=== PATIENT | female | born 2000 | race African-American/Black ===

== ENCOUNTER 2020-06-18 17:22 | Emergency (ER) | payer OTHER ==
--- NOTE | 2020-06-18 17:41 | PDOC ---
History of Present Illness - General Stated Complaint: DIZZINESS Time Seen by Provider: 06/18/20 17:39 - History of Present Illness Initial Comments: HPI Pt is a 19yo F with PMH anemia, asthma who presents with weakness and dizziness x4 days. Reports episode of vertiginous symptoms on Wednesday, associated with diffuse headache that self-resolved and nausea with 1 episode of emesis. Reports episode of dizziness on Wednesday, which improved with rest. Reports episode today, a/w weakness. Pt was scanning items at register when she felt vertiginous sxs, went to sit down, without resolution of symptoms. Denies any notable triggers, denies aggravating/relieving factors. Reports normal PO intake. Reports lightheadedness with change in position from sitting to standing. Denies f/c, chest pain, SOB, abdominal pain. LMP: 06/13/20 PCP: has not seen one here (moved from [place] last july) PMH: see above PSH: L ear nodule removal Meds: denies Allergies: NKDA Social: denies tobacco, social etoh, denies illicit drug use Review of Systems CONSTITUTIONAL: reports generalized weakness;denies fever, chills,malaise, loss of appetite HEENT:denies rhinorrhea, nasal congestion, sore throat, visual changes CARDIOVASCULAR:reports lightheadedness; denies chest pain, syncope, palpitations, irregular heart rate, peripheral edema RESPIRATORY:denies cough, shortness of breath, wheezing, hemoptysis GASTROINTESTINAL: reports n/v; denies abdominal pain, diarrhea, constipation, melena, hematochezia GENITOURINARY:denies dysuria, frequency, urgency, hematuria, flank pain MUSCULOSKELETAL:denies myalgia, arthralgia, neck pain, back pain HEMATOLOGIC/IMMUNOLOGIC:denies easy bleeding, easy bruising ENDOCRINE: denies unexplained weight gain, unexplained weight loss NEUROLOGIC:reports dizziness, headache; denies loss of consciousness, focal weakness or paresthesias, unsteady gait, mental status changes, bladder or bowel incontinence SKIN:denies rash, itching, pallor Physical Exam General: awake, alert, fully oriented, in no acute distress, well developed, well nourished Head: normocephalic, atraumatic Eyes: PERRL, EOMI, anicteric sclera, conjunctiva clear ENT: Auricles normal inspection, healed scar under L ear, hearing grossly normal, oropharynx clear without exudates, moist mucous membranes Neck: supple, normal ROM Lung: equal breath sounds b/l, CTA b/l, no crackles, wheezes; no distress, speaks full sentences Heart: RRR, normal S1, S2, no murmurs appreciated Abdomen: soft, non tender, normoactive bowel sounds, no guarding, rebound, masses Extremities: normal ROM, no edema, no erythema or tenderness, DP/PT pulses 2+ and symmetric Neuro: Cranial nerves: Cranial nerves II through XII are intact Motor: The upper extremities are 5/5 in all muscle groups. The lower extremities are 5/5 in all muscle groups. No pronator drift. Sensation: Sensation is intact to light touch throughout. Cerebellar: -dysmetria, -dysdiadochokinesia, [id number] is normal in both lower extremities. Gait: Normal Skin: warm, dry MDM Pt is a 19yo F with PMH anemia, asthma who presents with weakness and dizziness x4 days. VS significant for tachycardia DDx including but not limited to: hyperglycemia, vertigo, Workup: labs, ekg TX: IV fluids FSG 217 EKG: normal sinus rhythm, HR 85bpm, CO 132ms, QRS 66ms, QTc 409ms, TWI in AVR, V1 Pending labs Pt signed out to night team Past History - Medical History Allergies/Adverse Reactions: Allergies Allergy/AdvReac Type Severity Reaction Status Date / Time No Known Allergies Allergy Verified 06/18/20 17:43 Home Medications: Ambulatory Orders Meclizine HCl 25 mg PO BID PRN #10 tab.chew 06/18/20 ED Treatment Course - LABORATORY CBC & Chemistry Diagram: 06/18/20 18:47 06/18/20 18:47 Discharge - Discharge Information Problems reviewed: Yes Clinical Impression/Diagnosis: Vertigo, Hyperglycemia Condition: Stable Disposition: HOME - Additional Discharge Information Prescriptions: Meclizine HCl 25 mg PO BID PRN #10 tab.chew PRN Reason: Vertigo - Follow up/Referral Referrals: [facility] [place] Internal Med at [place] [Provider Group] - Patient Discharge Instructions Patient Printed Discharge Instructions: Complications of Type 2 Diabetes Additional Instructions: Today you were evaluated for dizziness. Your labs do not show any serious disease that needs immediate treatment. We have given you IV fluids and a medication called meclizine and you felt better. At home, you need to see your primary care doctor for further treatment and evaluation. Be mindful that your blood sugar is very high, consistent with Type 2 diabetes, which can lead to serious problems such as vision loss, wounds in your feet, or kidney failure. You should avoid eating any foods high in carbohydrates or sugar, such as juices, sodas, or anything that has a lot of rice or bread. If you experience any worsening dizziness, have uncontrollable nausea and vomiting, chest pain, difficulty breathing, or any other new or concerning symptoms, please return to the emergency room. - Post Discharge Activity
[2020-06-18 17:46] VITALS: TEMP 98.6; BMI 32.3
[2020-06-18] MEDS ORDERED: LACTATED RINGERS SOLUTION 1000 ML INFUS.BAG IV ONE (18:19)
[2020-06-18] MEDS ORDERED: MECLIZINE HCL 25 MG TABLET (FP) PO ONE (18:20)
--- NOTE | 2020-06-18 18:29 | PDOC ---
Documentation entered by Rosie Freeman SCRIBE, acting as scribe for Meg Lovett MD. Meg Lovett MD: This documentation has been prepared by the Radha martin Sydney, SCRIBE, under my direction and personally reviewed by me in its entirety. I confirm that the documentation accurately reflects all work, treatment, procedures, and medical decision making performed by me. Attending Attestation - Resident Resident Name: Erin Andino - ED Attending Attestation I have performed the following: I have examined & evaluated the patient, The case was reviewed & discussed with the resident, I agree w/resident's findings & plan, Exceptions are as noted - HPI HPI: 06/18/20 18:18 Patient is a 19 year old female with a significant past medical history of anemia (non-medicated), asthma, chronic headaches who presents to the ED with four days of intermittent dizziness and general weakness. As per patient, her symptoms began on Wednesday with an associated 6/10 headache which has since resolved. On Wednesday, she endorses room spinning with her episode of dizziness. 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 She notes associated nausea and one episode of NBNB vomiting today. Denies fever, chills, shortness of breath, chest pain, diarrhea, or urinary changes. Denies any triggers to her symptoms. Allergies: NKDA - Physicial Exam PE: 06/18/20 18:25 Well-nourished well-developed 19-year-old female presents with complaint of intermittent vertigo Head normocephalic atraumatic Eyes extraocular muscles intact, pupils equal reactive to light accommodation Neck supple, no bruits Lungs clear to auscultation CVS regular rate and rhythm S1-S2 Abdomen protuberant but nontender Extremities no pitting edema Skin warm and dry Neuro alert and oriented x3, ambulatory - Medical Decision Making 06/18/20 18:27 Patient history she works at [employer], no children,she moved up from [place] last July Social history: tobacco use ekg is nsr @ 85 bpm,normal QTc 06/18/20 18:31 [id number] and there s concern for diabetes. Her mother is diabetic 06/18/20 20:06 pt is ambulating with ease,alert and she had no gross focal neuro deficits 06/18/20 20:07 cbc is unremarkable chemistries wnl with exception [id number] Discharge - Discharge Information Problems reviewed: Yes Clinical Impression/Diagnosis: Vertigo, Hyperglycemia - Additional Discharge Information Prescriptions: Meclizine HCl 25 mg PO BID PRN #10 tab.chew PRN Reason: Vertigo - Follow up/Referral Referrals: [facility] [place] Internal Med at [place] [Provider Group] - Patient Discharge Instructions Patient Printed Discharge Instructions: Complications of Type 2 Diabetes Additional Instructions: Today you were evaluated for dizziness. Your labs do not show any serious disease that needs immediate treatment. We have given you IV fluids and a medication called meclizine and you felt better. At home, you need to see your primary care doctor for further treatment and evaluation. Be mindful that your blood sugar is very high, consistent with Type 2 diabetes, which can lead to serious problems such as vision loss, wounds in your feet, or kidney failure. You should avoid eating any foods high in carbohydrates or sugar, such as juices, sodas, or anything that has a lot of rice or bread. If you experience any worsening dizziness, have uncontrollable nausea and vomiting, chest pain, difficulty breathing, or any other new or concerning symptoms, please return to the emergency room. - Post Discharge Activity
[2020-06-18] MEDS ORDERED: SODIUM CHLORIDE 0.9% 500 ML INFUS.BAG IV ONE (19:03)
[2020-06-18] MEDS ORDERED: MECLIZINE HCL 25 MG TABLET (FP) ONE (19:03)
[2020-06-18 19:17] LABS: BASO % 0.7 % (0-2.0); EOS % 0.5 % (0-4.5); HEMATOCRIT 38.2 % (32.4-45.2); HEMOGLOBIN 11.9 GM/dL (10.7-15.3); MCH 23.6 pg (25.7-33.7); MCHC 31.3 g/dl (32.0-36.0); MEAN CELL VOLUME 75.3 fl (80-96); MONO % 4.9 % (3.8-10.2); NEUT % 73.9 % (42.8-82.8); PLATELET COUNT 330 K/MM3 (134-434); RBC 5.07 M/mm3 (3.60-5.2); RDW 17.2 % (11.6-15.6); WHITE BLOOD COUNT 6.7 K/mm3 (4.0-10.0)
[2020-06-18 19:19] LABS: URINE APPEARANCE CLOUDY; URINE BILIRUBIN NEGATIVE (NEGATIVE); URINE COLOR YELLOW; URINE GLUCOSE (UA) 3+ (NEGATIVE); URINE KETONE NEGATIVE (NEGATIVE); URINE LEUK ESTERASE NEGATIVE (NEGATIVE); URINE NITRITE NEGATIVE (NEGATIVE); URINE PROTEIN NEGATIVE (NEGATIVE); URINE UROBILINOGEN 0.2 mg/dL (0.2-1.0)
--- NOTE | 2020-06-18 19:20 | PDOC ---
*Physical Exam - Vital Signs Last Vital Signs Temp Pulse Resp BP Pulse Ox 98.6 F 103 H 18 136/76 100 06/18/20 17:43 06/18/20 17:43 06/18/20 17:43 06/18/20 17:43 06/18/20 17:43 ED Treatment Course - LABORATORY CBC & Chemistry Diagram: 06/18/20 18:47 06/18/20 18:47 - ADDITIONAL ORDERS Additional order review: Laboratory Results 06/18/20 17:46 POC Glucometer 217 06/18/20 17:46 POC Glucometer 217 - Medications Given in the ED: ED Medications Discontinued Medications Generic Name Dose Route Start Last Admin Trade Name Freq PRN Reason Stop Dose Admin Meclizine HCl 25 mg 06/18/20 18:20 06/18/20 19:12 Antivert - PO 06/18/20 18:21 25 mg ONCE ONE Administration Sodium Chloride 1,000 ml 06/18/20 19:03 06/18/20 19:12 Normal Saline - IV 06/18/20 19:04 1,000 ml ONCE ONE Administration Medical Decision Making - Medical Decision Making 06/18/20 19:12 Signed out to me by Dr. Erin Andino. 19F with reported PMH anemia, here for episodes of dizziness. Worse than normal today, mild MELGAR. Denies any other systemic symptoms. A bit tachycardic, possibly nervous, no respiratory sx or chest pain. Giving IVF and meclizine. Observed ambulating in the ED in NAD. Pending labs. If improved, can be discharged home with PMD f/u and education about obesity and diabetes. 06/18/20 19:26 Labs notable for: - Hgb 11.9, on the lower side but WNL - UA 3+ glucose, no infectious markers - UPREG negative - glucose 229 - Na 135, WNL, receiving 1L NS ECG NSR with HR 85, QTc 409, no MARIELY/D or TWI. 06/18/20 21:55 Patient feeling better after IVF. Sending home with meclizine and will follow-up with PMD. Discharge - Discharge Information Problems reviewed: Yes Clinical Impression/Diagnosis: Vertigo - Additional Discharge Information Prescriptions: Meclizine HCl 25 mg PO BID PRN #10 tab.chew PRN Reason: Vertigo - Follow up/Referral Referrals: [facility] [place] Internal Med at [place] [Provider Group] - Patient Discharge Instructions Patient Printed Discharge Instructions: Complications of Type 2 Diabetes Additional Instructions: Today you were evaluated for dizziness. Your labs do not show any serious disease that needs immediate treatment. We have given you IV fluids and a medication called meclizine and you felt better. At home, you need to see your primary care doctor for further treatment and evaluation. Be mindful that your blood sugar is very high, consistent with Type 2 diabetes, which can lead to serious problems such as vision loss, wounds in your feet, or kidney failure. You should avoid eating any foods high in carbohydrates or sugar, such as juices, sodas, or anything that has a lot of rice or bread. If you experience any worsening dizziness, have uncontrollable nausea and vomiting, chest pain, difficulty breathing, or any other new or concerning symptoms, please return to the emergency room. - Post Discharge Activity
[2020-06-18 19:22] LABS: HCG,QUALITATIVE URINE Negative
[2020-06-18 19:30] LABS: ALBUMIN 4.1 g/dl (3.4-5.0); BILIRUBIN,TOTAL 0.2 mg/dL (0.2-1); BLOOD UREA NITROGEN 12.4 mg/dL (7-18); CALCIUM 9.2 mg/dL (8.5-10.1); CREATININE 0.7 mg/dL (0.55-1.3); MAGNESIUM 1.8 mg/dL (1.8-2.4); POTASSIUM 4.1 mmol/L (3.5-5.1); TOT PROT 7.9 g/dl (6.4-8.2)
[2020-06-18 20:57] VITALS: BP 99/54; PULSE 82
--- NOTE | 2020-06-19 09:19 | EKG ---
Test Reason : Blood Pressure : / mmHG Vent. Rate : 085 BPM Atrial Rate : 085 BPM P-R Int : 132 ms QRS Dur : 066 ms QT Int : 344 ms P-R-T Axes : 017 031 031 degrees QTc Int : 409 ms POOR DATA QUALITY, INTERPRETATION MAY BE ADVERSELY AFFECTED NORMAL SINUS RHYTHM NORMAL ECG NO PREVIOUS ECGS AVAILABLE Confirmed by MD RANGEL MOYSES ([id number]) on 06/19/2020 9:19:25 AM Referred By: Confirmed By:NAVA RANGEL MD
== END 2020-06-18 22:55 | disposition home or self-care (01) ==
LOC: JER 17:22
DX: R42 Dizziness and giddiness (principal); R73.9 Hyperglycemia, unspecified
CPT/HCPCS: 36415; 80053; 81003; 82962; 83735; 84703; 85025; 86850; 86900; 86901; 87086; 93005; 93010; 99284-25

== ENCOUNTER 2020-11-01 13:24 | Emergency (ER) | payer OTHER ==
[2020-11-01 13:40] VITALS: BMI 25.8
[2020-11-01] MEDS ORDERED: ONDANSETRON 4 MG/2 ML VIAL IVPUSH ONE (14:14)
[2020-11-01] MEDS ORDERED: SODIUM CHLORIDE 1,000 ML IV STA (14:14)
[2020-11-01] MEDS ORDERED: ACETAMINOPHEN 1000 MG/100 ML VIAL (NON FORMULARY) IVPB ONE (14:14)
[2020-11-01] MEDS ORDERED: ONDANSETRON 4 MG/2 ML VIAL ONE (14:20)
[2020-11-01] MEDS ORDERED: ACETAMINOPHEN INJECTION 100 ML IVPB ONE (14:20)
[2020-11-01 15:09] LABS: HCG,QUALITATIVE URINE Negative
[2020-11-01 15:26] LABS: URINE APPEARANCE CLEAR; URINE BILIRUBIN NEGATIVE (NEGATIVE); URINE COLOR YELLOW; URINE GLUCOSE (UA) NEGATIVE (NEGATIVE); URINE KETONE TRACE (NEGATIVE)
[2020-11-01 15:27] LABS: EPI CELLS 25.3 /uL (0-25.1); HYALINE CASTS 0.38 /uL (0-3.1); URINE LEUK ESTERASE NEGATIVE (NEGATIVE); URINE NITRITE NEGATIVE (NEGATIVE); URINE PROTEIN NEGATIVE (NEGATIVE); URINE UROBILINOGEN 0.2 mg/dL (0.2-1.0); URINE WBC 18.1 /uL (0-25.8)
[2020-11-01 16:03] LABS: BASO % 0.8 % (0-2.0); EOS % 1.4 % (0-4.5); HEMATOCRIT 36.2 % (32.4-45.2); HEMOGLOBIN 11.5 GM/dL (10.7-15.3); LYMPH % 31.8 % (8-40); MCH 24.6 pg (25.7-33.7); MCHC 31.8 g/dl (32.0-36.0); MEAN CELL VOLUME 77.3 fl (80-96); MEAN PLT VOLUME 8.9 fl (7.5-11.1); MONO % 5.6 % (3.8-10.2); NEUT % 60.4 % (42.8-82.8); PLATELET COUNT 322 K/MM3 (134-434); RBC 4.69 M/mm3 (3.60-5.2); RDW 17.3 % (11.6-15.6); WHITE BLOOD COUNT 5.6 K/mm3 (4.0-10.0)
[2020-11-01 16:11] LABS: INR 1.18 (0.83-1.09); PROTHROMBIN TIME (PATIENT) 14.2 SEC (9.7-13.0)
[2020-11-01 19:29] LABS: CHLORIDE 107 mmol/L (98-107); POTASSIUM 3.8 mmol/L (3.5-5.1); SODIUM 137 mmol/L (136-145)
[2020-11-01 19:32] LABS: ALBUMIN 3.4 g/dl (3.4-5.0); ANION GAP 7 MMOL/L (8-16); CALCIUM 8.1 mg/dL (8.5-10.1); CO2 22 mmol/L (21-32); GLUCOSE,RANDOM 93 mg/dL (74-106); LIPASE 122 U/L (73-393)
[2020-11-01 19:36] LABS: CREATININE 0.6 mg/dL (0.55-1.3); SGOT/AST 5 U/L (15-37); SGPT/ALT 14 U/L (13-61)
[2020-11-01 19:37] LABS: BILIRUBIN,TOTAL 0.3 mg/dL (0.2-1)
[2020-11-01 19:38] LABS: ALK PHOS 57 U/L (45-117)
[2020-11-01 22:22] VITALS: BP 124/68; PULSE 84
== END 2020-11-01 22:22 | disposition home or self-care (01) ==
LOC: JER 13:24
PROC: 3E033NZ Introduction of Analgesics, Hypnotics, Sedatives into Peripheral Vein, Percutaneous Approach (ICD-10-PCS; principal; 2020-11-01)
PROC: 3E033GC Introduction of Other Therapeutic Substance into Peripheral Vein, Percutaneous Approach (ICD-10-PCS; 2020-11-01)
PROC: 3E0337Z Introduction of Electrolytic and Water Balance Substance into Peripheral Vein, Percutaneous Approach (ICD-10-PCS; 2020-11-01)
DX: N30.00 Acute cystitis without hematuria (principal)
CPT/HCPCS: 36415; 74177-TC; 80053; 81003; 82550; 83690; 84484; 84703; 85025; 85610; 87086; 87804; 93005; 93010; 99285-25; C9803; J0131; Q9967; U0003

== ENCOUNTER 2020-12-12 15:57 | Emergency (ER) | payer OTHER ==
[2020-12-12 16:10] VITALS: BP 124/92; PULSE 92; TEMP 99.1; BMI 34.9
[2020-12-12] MEDS ORDERED: ALBUTEROL SO4 2.5/IPRATROPIUM 0.5 INH SOL 3 ML VIAL.NEB. NEB ONE (18:32)
[2020-12-12] MEDS: ALBUTEROL SO4 2.5/IPRATROPIUM 0.5 INH SOL 3 ML VIAL.NEB. NEB SCH ×2 (18:43→19:26)
== END 2020-12-12 20:29 | disposition home or self-care (01) ==
LOC: JER 15:57
PROC: 3E0F7GC Introduction of Other Therapeutic Substance into Respiratory Tract, Via Natural or Artificial Opening (ICD-10-PCS; principal; 2020-12-12)
DX: J06.9 Acute upper respiratory infection, unspecified (principal)
CPT/HCPCS: 71046-TC-FY; 99284-25; C9803; U0003

== ENCOUNTER 2020-12-16 16:01 | Emergency (ER) | payer OTHER ==
[2020-12-16 16:09] VITALS: TEMP 98.2; BMI 26.6
[2020-12-16] MEDS ORDERED: SODIUM CHLORIDE 1,000 ML IV STA (17:48)
[2020-12-16] MEDS ORDERED: ONDANSETRON 4 MG/2 ML VIAL IVPUSH ONE (17:48)
[2020-12-16] MEDS ORDERED: ONDANSETRON 4 MG/2 ML VIAL ONE (18:11)
[2020-12-16 18:40] LABS: BASO % 0.8 % (0-2.0); EOS % 0.9 % (0-4.5); HEMOGLOBIN 11.8 GM/dL (10.7-15.3); LYMPH % 30.9 % (8-40); MCH 24.8 pg (25.7-33.7); MCHC 31.9 g/dl (32.0-36.0); MEAN CELL VOLUME 77.8 fl (80-96); MEAN PLT VOLUME 8.6 fl (7.5-11.1); MONO % 5.2 % (3.8-10.2); NEUT % 62.2 % (42.8-82.8); PLATELET COUNT 355 K/MM3 (134-434); RBC 4.76 M/mm3 (3.60-5.2); RDW 17.2 % (11.6-15.6); WHITE BLOOD COUNT 6.3 K/mm3 (4.0-10.0)
[2020-12-16 18:44] LABS: EPI CELLS 35 /uL (0-25.1); HYALINE CASTS 1 /uL (0-3.1); URINE APPEARANCE CLEAR; URINE BACTERIA 238 /uL (0-1359); URINE BILIRUBIN NEGATIVE (NEGATIVE); URINE COLOR YELLOW; URINE GLUCOSE (UA) NEGATIVE (NEGATIVE); URINE KETONE TRACE (NEGATIVE); URINE LEUK ESTERASE 1+ (NEGATIVE); URINE NITRITE NEGATIVE (NEGATIVE); URINE PROTEIN NEGATIVE (NEGATIVE); URINE UROBILINOGEN 0.2 mg/dL (0.2-1.0); URINE WBC 12 /uL (0-25.8)
[2020-12-16 18:49] LABS: HCG,QUALITATIVE URINE Negative
[2020-12-16 18:57] LABS: POTASSIUM 4.1 mmol/L (3.5-5.1)
[2020-12-16 18:58] LABS: CALCIUM 9.2 mg/dL (8.5-10.1)
[2020-12-16 18:59] LABS: ALBUMIN 4.1 g/dl (3.4-5.0); BLOOD UREA NITROGEN 11.8 mg/dL (7-18)
[2020-12-16 19:02] LABS: CREATININE 0.7 mg/dL (0.55-1.3)
[2020-12-16 19:04] LABS: BILIRUBIN,TOTAL 0.2 mg/dL (0.2-1); TOT PROT 7.9 g/dl (6.4-8.2)
[2020-12-16 19:51] LABS: URINE RBC 81.6 /uL (0-23.9)
[2020-12-16 20:25] VITALS: BP 127/71; PULSE 71
== END 2020-12-16 20:36 | disposition home or self-care (01) ==
LOC: JER 16:01
PROC: 3E0333Z Introduction of Anti-inflammatory into Peripheral Vein, Percutaneous Approach (ICD-10-PCS; principal; 2020-12-16)
PROC: 3E0337Z Introduction of Electrolytic and Water Balance Substance into Peripheral Vein, Percutaneous Approach (ICD-10-PCS; 2020-12-16)
DX: R11.2 Nausea with vomiting, unspecified (principal)
CPT/HCPCS: 36415; 80053; 81003; 84703; 85025; 99284-25; C9803; U0003

== ENCOUNTER 2021-06-26 14:23 | Emergency (ER) | payer OTHER ==
[2021-06-26 14:38] VITALS: PULSE 86; BMI 29.6
[2021-06-26 17:23] LABS: BASO % 0.9 % (0-2.0); EOS % 1.4 % (0-4.5); HEMATOCRIT 33.7 % (32.4-45.2); HEMOGLOBIN 10.8 GM/dL (10.7-15.3); LYMPH % 35.9 % (8-40); MCHC 32.1 g/dl (32.0-36.0); MEAN CELL VOLUME 77.8 fl (80-96); MEAN PLT VOLUME 7.8 fl (7.5-11.1); MONO % 5.8 % (3.8-10.2); PLATELET COUNT 351 10^3/uL (134-434); RBC 4.34 M/mm3 (3.60-5.2); RDW 16.3 % (11.6-15.6); WHITE BLOOD COUNT 5.2 K/mm3 (4.0-10.0)
[2021-06-26 17:23] LABS: EPI CELLS >36 /uL (0-25.1); HYALINE CASTS 3 /uL (0-3.1); URINE APPEARANCE CLEAR; URINE BACTERIA 1672 /uL (0-1359); URINE BILIRUBIN NEGATIVE (NEGATIVE); URINE COLOR YELLOW; URINE GLUCOSE (UA) NEGATIVE (NEGATIVE); URINE KETONE TRACE (NEGATIVE); URINE LEUK ESTERASE NEGATIVE (NEGATIVE); URINE NITRITE NEGATIVE (NEGATIVE); URINE PROTEIN NEGATIVE (NEGATIVE); URINE RBC 70 /uL (0-23.9); URINE UROBILINOGEN 0.2 mg/dL (0.2-1.0); URINE WBC 21 /uL (0-25.8)
[2021-06-26 17:48] LABS: HCG,QUALITATIVE URINE Negative
[2021-06-26 17:53] LABS: ALBUMIN 4.1 g/dl (3.4-5.0); BLOOD UREA NITROGEN 6.9 mg/dL (7-18); CALCIUM 9.1 mg/dL (8.5-10.1)
[2021-06-26 17:56] LABS: CREATININE 0.7 mg/dL (0.55-1.3)
[2021-06-26 17:58] LABS: BILIRUBIN,TOTAL 0.2 mg/dL (0.2-1)
[2021-06-26 18:57] VITALS: BP 110/65; TEMP 98.5
== END 2021-06-26 18:57 | disposition home or self-care (01) ==
LOC: JER 14:23
DX: N83.201 Unspecified ovarian cyst, right side (principal)
CPT/HCPCS: 36415; 74019-TC-FY; 76830-TC; 80053; 81003; 83690; 84703; 85025; 87086; 99284-25

== ENCOUNTER 2021-08-27 13:58 | Emergency (ER) | payer OTHER ==
[2021-08-27 14:20] VITALS: BP 116/79; PULSE 79; TEMP 98.9; BMI 29.6
[2021-08-27 16:55] LABS: EOS % 2.1 % (0-4.5); HEMATOCRIT 36.1 % (32.4-45.2); HEMOGLOBIN 11.5 GM/dL (10.7-15.3); MCH 24.9 pg (25.7-33.7); MCHC 31.8 g/dl (32.0-36.0); MEAN CELL VOLUME 78.4 fl (80-96); MEAN PLT VOLUME 8.1 fl (7.5-11.1); MONO % 5.4 % (3.8-10.2); NEUT % 58.5 % (42.8-82.8); PLATELET COUNT 354 10^3/uL (134-434); RDW 16.4 % (11.6-15.6); WHITE BLOOD COUNT 5.5 K/mm3 (4.0-10.0)
[2021-08-27 17:15] LABS: CHLORIDE 105 mmol/L (98-107); SODIUM 138 mmol/L (136-145)
[2021-08-27 17:17] LABS: ALBUMIN 3.8 g/dl (3.4-5.0); ANION GAP 8 MMOL/L (8-16); BLOOD UREA NITROGEN 10.1 mg/dL (7-18); CALCIUM 9.2 mg/dL (8.5-10.1); CO2 25 mmol/L (21-32); GLUCOSE,RANDOM 91 mg/dL (74-106)
[2021-08-27 17:20] LABS: CREATININE 0.8 mg/dL (0.55-1.3); SGOT/AST 9 U/L (15-37); SGPT/ALT 16 U/L (13-61)
[2021-08-27 17:22] LABS: BILIRUBIN,TOTAL 0.2 mg/dL (0.2-1); TOT PROT 7.8 g/dl (6.4-8.2)
[2021-08-27 17:23] LABS: ALK PHOS 72 U/L (45-117)
[2021-08-27 18:07] LABS: EPI CELLS >36 /uL (0-25.1); HYALINE CASTS 5 /uL (0-3.1); PH,URINE 5.5 (5.0-8.0); URINE APPEARANCE CLEAR; URINE BACTERIA 2033 /uL (0-1359); URINE BILIRUBIN NEGATIVE (NEGATIVE); URINE COLOR YELLOW; URINE GLUCOSE (UA) NEGATIVE (NEGATIVE); URINE KETONE TRACE (NEGATIVE); URINE LEUK ESTERASE 1+ (NEGATIVE); URINE NITRITE NEGATIVE (NEGATIVE); URINE PROTEIN NEGATIVE (NEGATIVE); URINE RBC 28 /uL (0-23.9); URINE WBC 75 /uL (0-25.8)
[2021-08-27 18:33] LABS: HCG,QUALITATIVE URINE Negative
== END 2021-08-27 20:24 | disposition home or self-care (01) ==
LOC: JER 13:58
DX: R42 Dizziness and giddiness (principal)
CPT/HCPCS: 36415; 70450-TC; 80053; 81003; 82550; 84484; 84703; 85025; 93005; 93010; 99285-25

== ENCOUNTER 2021-10-12 19:02 | Emergency (ER) | payer OTHER ==
[2021-10-12 19:12] VITALS: BMI 29.6
[2021-10-12] MEDS ORDERED: SODIUM CHLORIDE 0.9% 500 ML INFUS.BAG IV ONE (20:11)
[2021-10-12 20:41] LABS: BASO % 0.9 % (0-2.0); EOS % 0.5 % (0-4.5); HEMOGLOBIN 11.1 GM/dL (10.7-15.3); LYMPH % 3.6 % (8-40); MCH 24.4 pg (25.7-33.7); MCHC 31.7 g/dl (32.0-36.0); MEAN CELL VOLUME 76.8 fl (80-96); MEAN PLT VOLUME 8.2 fl (7.5-11.1); PLATELET COUNT 325 10^3/uL (134-434); RBC 4.56 M/mm3 (3.60-5.2); RDW 16.5 % (11.6-15.6); WHITE BLOOD COUNT 9.3 K/mm3 (4.0-10.0)
[2021-10-12 20:55] LABS: CHLORIDE 103 mmol/L (98-107); SODIUM 134 mmol/L (136-145)
[2021-10-12 20:57] LABS: BLOOD UREA NITROGEN 9.9 mg/dL (7-18); CALCIUM 8.8 mg/dL (8.5-10.1)
[2021-10-12 20:58] LABS: ALBUMIN 3.6 g/dl (3.4-5.0); CO2 22 mmol/L (21-32); GLUCOSE,RANDOM 137 mg/dL (74-106)
[2021-10-12 21:01] LABS: CREATININE 0.8 mg/dL (0.55-1.3); SGOT/AST 57 U/L (15-37); SGPT/ALT 18 U/L (13-61)
[2021-10-12 21:02] LABS: TOT PROT 7.7 g/dl (6.4-8.2)
[2021-10-12 21:03] LABS: ALK PHOS 64 U/L (45-117); BILIRUBIN,TOTAL 0.4 mg/dL (0.2-1)
[2021-10-12 21:43] LABS: ANION GAP 9 MMOL/L (8-16)
[2021-10-12 21:51] LABS: EPI CELLS >36 /uL (0-25.1); HYALINE CASTS 2 /uL (0-3.1); URINE APPEARANCE CLEAR; URINE BACTERIA 1501 /uL (0-1359); URINE BILIRUBIN NEGATIVE (NEGATIVE); URINE COLOR YELLOW; URINE GLUCOSE (UA) NEGATIVE (NEGATIVE); URINE KETONE 1+ (NEGATIVE); URINE LEUK ESTERASE TRACE (NEGATIVE); URINE NITRITE NEGATIVE (NEGATIVE); URINE PROTEIN TRACE (NEGATIVE); URINE RBC 8 /uL (0-23.9); URINE UROBILINOGEN 0.2 mg/dL (0.2-1.0); URINE WBC 44 /uL (0-25.8)
[2021-10-12] MEDS ORDERED: ACETAMINOPHEN 500 MG TABLET (FP) ONE (21:58)
[2021-10-13 01:10] VITALS: BP 112/64; PULSE 88; TEMP 98.4
== END 2021-10-13 01:20 | disposition home or self-care (01) ==
LOC: JER 19:02
DX: R06.02 Shortness of breath (principal); J06.9 Acute upper respiratory infection, unspecified; B34.9 Viral infection, unspecified
CPT/HCPCS: 36415; 71045-TC-FY; 80053; 81003; 82550; 82553; 84132; 84484; 85025; 87070; 87077; 87086; 87186; 87651; 93005; 93010; 99285-25

== ENCOUNTER 2022-10-21 23:05 | Observation (INO) | payer OTHER ==
[2022-10-21 23:13] VITALS: BMI 31.1
[2022-10-22] MEDS ORDERED: MECLIZINE HCL 25 MG TABLET (FP) PO ONE (01:23)
[2022-10-22] MEDS ORDERED: MECLIZINE HCL 25 MG TABLET (FP) ONE (01:34)
[2022-10-22 02:13] LABS: EOS % 3.8 % (0-4.5); HEMATOCRIT 35.4 % (32.4-45.2); HEMOGLOBIN 11.2 GM/dL (10.7-15.3); LYMPH % 32.3 % (8-40); MCH 24.6 pg (25.7-33.7); MCHC 31.7 g/dl (32.0-36.0); MEAN CELL VOLUME 77.4 fl (80-96); MEAN PLT VOLUME 8.3 fl (7.5-11.1); MONO % 5.9 % (3.8-10.2); PLATELET COUNT 324 10^3/uL (134-434); RBC 4.57 M/mm3 (3.60-5.2); RDW 16.7 % (11.6-15.6); WHITE BLOOD COUNT 6.4 K/mm3 (4.0-10.0)
[2022-10-22 02:17] LABS: EPI CELLS 16 /uL (0-25.1); HCG,QUALITATIVE URINE Negative; HYALINE CASTS 0 /uL (0-3.1); PH,URINE 6.5 (5.0-8.0); URINE APPEARANCE CLEAR; URINE BACTERIA 1291 /uL (0-1359); URINE BILIRUBIN NEGATIVE (NEGATIVE); URINE COLOR YELLOW; URINE GLUCOSE (UA) 2+ (NEGATIVE); URINE KETONE NEGATIVE (NEGATIVE); URINE LEUK ESTERASE NEGATIVE (NEGATIVE); URINE NITRITE NEGATIVE (NEGATIVE); URINE PROTEIN NEGATIVE (NEGATIVE); URINE RBC 24 /uL (0-23.9); URINE UROBILINOGEN 0.2 mg/dL (0.2-1.0); URINE WBC 30 /uL (0-25.8)
[2022-10-22 02:34] LABS: CALCIUM 9.4 mg/dL (8.5-10.1)
[2022-10-22 02:35] LABS: ALBUMIN 3.7 g/dl (3.4-5.0); BLOOD UREA NITROGEN 12.6 mg/dL (7-18)
[2022-10-22 02:38] LABS: CREATININE 0.9 mg/dL (0.55-1.3)
[2022-10-22 02:39] LABS: BILIRUBIN,TOTAL 0.2 mg/dL (0.2-1); TOT PROT 7.3 g/dl (6.4-8.2)
[2022-10-22] MEDS ORDERED: SODIUM CHLORIDE 1,000 ML IV STA (04:05)
[2022-10-22] MEDS ORDERED: ONDANSETRON 4 MG/2 ML VIAL IVPUSH PRN (08:36)
[2022-10-22 09:44] LABS: BASO % 1.2 % (0-2.0); EOS % 5.4 % (0-4.5); HEMATOCRIT 33.6 % (32.4-45.2); HEMOGLOBIN 10.7 GM/dL (10.7-15.3); LYMPH % 36.9 % (8-40); MCH 24.8 pg (25.7-33.7); MCHC 31.9 g/dl (32.0-36.0); MEAN CELL VOLUME 77.8 fl (80-96); MEAN PLT VOLUME 8.2 fl (7.5-11.1); MONO % 6.9 % (3.8-10.2); NEUT % 49.6 % (42.8-82.8); PLATELET COUNT 298 10^3/uL (134-434); RBC 4.32 M/mm3 (3.60-5.2); RDW 16.8 % (11.6-15.6); WHITE BLOOD COUNT 4.8 K/mm3 (4.0-10.0)
[2022-10-22] MEDS ORDERED: ENOXAPARIN NA (PORCINE) 40 MG/0.4 ML DISP.SYRIN SQ ONE (09:44)
[2022-10-22] MEDS: ENOXAPARIN NA (PORCINE) 40 MG/0.4 ML DISP.SYRIN SQ SCH (09:53)
[2022-10-22 10:11] LABS: CHLORIDE 104 mmol/L (98-107); SODIUM 135 mmol/L (136-145)
[2022-10-22 10:17] LABS: ALBUMIN 3.3 g/dl (3.4-5.0); ANION GAP 7 MMOL/L (8-16); CALCIUM 8.7 mg/dL (8.5-10.1); CO2 25 mmol/L (21-32); GLUCOSE,RANDOM 245 mg/dL (74-106)
[2022-10-22 10:18] LABS: BLOOD UREA NITROGEN 12.7 mg/dL (7-18); MAGNESIUM 1.8 mg/dL (1.8-2.4)
[2022-10-22 10:19] LABS: CREATININE 0.8 mg/dL (0.55-1.3)
[2022-10-22 10:20] LABS: SGOT/AST < 3 U/L (15-37); SGPT/ALT 15 U/L (13-61)
[2022-10-22 10:21] LABS: BILIRUBIN,TOTAL 0.4 mg/dL (0.2-1); PHOSPHOROUS 3.6 mg/dL (2.5-4.9); TOT PROT 6.5 g/dl (6.4-8.2)
[2022-10-22 10:22] LABS: ALK PHOS 58 U/L (45-117)
[2022-10-22] MEDS ORDERED: MECLIZINE HCL 25 MG TABLET (FP) PO PRN (10:36)
[2022-10-22 12:24] LABS: IRON SERUM 47 ug/dL (50-175)
[2022-10-22 12:26] LABS: TOTAL IRON BINDING CAPACITY 351 ug/dL (250-450)
[2022-10-22] MEDS: INSULIN SLIDING SCALE (NOVOLOG) 1 VIAL SQ SCH ×3 (17:33→23:13)
[2022-10-23] MEDS: INSULIN SLIDING SCALE (NOVOLOG) 1 VIAL SQ SCH ×4 (08:33→21:51)
[2022-10-23 09:14] LABS: BASO % 1.1 % (0-2.0); EOS % 4.7 % (0-4.5); HEMATOCRIT 35.2 % (32.4-45.2); LYMPH % 39.4 % (8-40); MCH 24.3 pg (25.7-33.7); MCHC 31.3 g/dl (32.0-36.0); MEAN CELL VOLUME 77.7 fl (80-96); MEAN PLT VOLUME 8.4 fl (7.5-11.1); MONO % 7.6 % (3.8-10.2); NEUT % 47.2 % (42.8-82.8); PLATELET COUNT 304 10^3/uL (134-434); RBC 4.53 M/mm3 (3.60-5.2); RDW 16.6 % (11.6-15.6); WHITE BLOOD COUNT 4.3 K/mm3 (4.0-10.0)
[2022-10-23 10:06] LABS: CALCIUM 8.6 mg/dL (8.5-10.1)
[2022-10-23 10:07] LABS: ALBUMIN 3.2 g/dl (3.4-5.0); BLOOD UREA NITROGEN 11.9 mg/dL (7-18); MAGNESIUM 1.9 mg/dL (1.8-2.4)
[2022-10-23 10:10] LABS: CREATININE 0.7 mg/dL (0.55-1.3); PHOSPHOROUS 3.8 mg/dL (2.5-4.9)
[2022-10-23 10:11] LABS: TOT PROT 6.5 g/dl (6.4-8.2)
[2022-10-23 10:12] LABS: BILIRUBIN,TOTAL 0.3 mg/dL (0.2-1)
[2022-10-23] MEDS ORDERED: ENOXAPARIN NA (PORCINE) 40 MG/0.4 ML DISP.SYRIN SQ ONE (10:47)
[2022-10-23] MEDS: ENOXAPARIN NA (PORCINE) 40 MG/0.4 ML DISP.SYRIN SQ SCH (10:49)
[2022-10-23] MEDS ORDERED: MECLIZINE HCL 25 MG TABLET (FP) ONE (11:40)
[2022-10-23] MEDS ORDERED: ACETAMINOPHEN 325 MG TABLET (FP) PO PRN (17:01)
[2022-10-23] MEDS ORDERED: ACETAMINOPHEN 325 MG TABLET (FP) ONE (17:08)
[2022-10-23] MEDS ORDERED: ATORVASTATIN CA 20 MG TABLET (FP) PO SCH (22:00)
[2022-10-24 00:52] VITALS: RESP 18
[2022-10-24] MEDS: INSULIN SLIDING SCALE (NOVOLOG) 1 VIAL SQ SCH ×2 (06:05→10:56)
[2022-10-24] MEDS ORDERED: MECLIZINE HCL 25 MG TABLET (FP) PO PRN (08:00)
[2022-10-24] MEDS ORDERED: MECLIZINE HCL 25 MG TABLET (FP) PO SCH (08:15)
[2022-10-24] MEDS: ENOXAPARIN NA (PORCINE) 40 MG/0.4 ML DISP.SYRIN SQ SCH (09:36)
[2022-10-24 10:05] VITALS: BP 123/65; PULSE 93; TEMP 98.5
[2022-10-24] MEDS ORDERED: INSULIN (NOVOLOG) ASPART 100 UNITS/ML 10ML VIAL ONE (10:54)
== END 2022-10-24 12:39 | disposition home or self-care (01) ==
LOC: JER 23:05 → UNDOADMOB 10-22 05:06 → INTOOBSV 10-22 05:06 → JERBED 10-22 05:06 → J7W 10-23 17:49
PROVIDERS: ADMIT Internal Medicine; ATTEND Internal Medicine
PROC: 3E023GC Introduction of Other Therapeutic Substance into Muscle, Percutaneous Approach (ICD-10-PCS; principal; 2022-10-22)
PROC: 3E013VG Introduction of Insulin into Subcutaneous Tissue, Percutaneous Approach (ICD-10-PCS; 2022-10-22)
PROC: 3E0337Z Introduction of Electrolytic and Water Balance Substance into Peripheral Vein, Percutaneous Approach (ICD-10-PCS; 2022-10-22)
DX: I10 Essential (primary) hypertension (principal); D64.9 Anemia, unspecified; D50.9 Iron deficiency anemia, unspecified; E11.9 Type 2 diabetes mellitus without complications; E78.5 Hyperlipidemia, unspecified
CPT/HCPCS: 36415; 70450-TC; 80053; 80061; 81003; 82728; 82962; 83036; 83540; 83550; 83735; 84100; 84443; 84466; 84703; 85025; 87086; 93005; 93010; 96360; 96372; 97116-GP; 99285-25; C9803-CS; G0378; U0003; U0005

== ENCOUNTER 2023-01-18 11:14 | Emergency (ER) | payer OTHER ==
[2023-01-18 11:31] VITALS: BP 114/72; PULSE 86; RESP 18; TEMP 98; BMI 30.4
[2023-01-18] MEDS ORDERED: IBUPROFEN 600 MG TABLET (FP) PO ONE ×2 (12:36→13:09)
[2023-01-18 19:07] LABS: EPI CELLS >36 /uL (0-25.1); HYALINE CASTS 3 /uL (0-3.1); PH,URINE 5.5 (5.0-8.0); URINE APPEARANCE CLEAR; URINE BACTERIA 3895 /uL (0-1359); URINE BILIRUBIN NEGATIVE (NEGATIVE); URINE COLOR YELLOW; URINE GLUCOSE (UA) 3+ (NEGATIVE); URINE KETONE 1+ (NEGATIVE); URINE LEUK ESTERASE NEGATIVE (NEGATIVE); URINE NITRITE NEGATIVE (NEGATIVE); URINE PROTEIN 1+ (NEGATIVE); URINE RBC 17 /uL (0-23.9); URINE UROBILINOGEN 0.2 mg/dL (0.2-1.0)
[2023-01-18 19:08] LABS: URINE WBC 57.2 /uL (0-25.8)
== END 2023-01-18 20:04 | disposition home or self-care (01) ==
LOC: JER 11:14
DX: N83.201 Unspecified ovarian cyst, right side (principal)
CPT/HCPCS: 76856-TC; 81003; 84703; 87086; 99285-25

== ENCOUNTER 2023-02-22 04:10 | Day surgery (SDC) | payer OTHER ==
[2023-02-18 14:04] VITALS: BMI 30.9
[~2023-02-22 04:10] MED LIST: BUPIVACAINE HCL/PF 0.5% (5MG/ML) 10 ML VIAL IJ ONE
[2023-02-22] MEDS ORDERED: LIDOCAINE HCL 1%, 10 MG/ML (10ML VIAL) MDV ONE (07:17)
[2023-02-22] MEDS ORDERED: BUPIVACAINE HCL/PF 0.5% (5MG/ML) 10 ML VIAL ONE (07:17)
[2023-02-22] MEDS ORDERED: MIDAZOLAM HCL 2 MG/2 ML SINGLE DOSE VIAL ONE (07:36)
[2023-02-22] MEDS ORDERED: PROPOFOL 20 ML ONE (07:45)
[2023-02-22] MEDS ORDERED: LIDOCAINE HCL/PF 2% SDV 5ML VIAL ONE (07:47)
[2023-02-22] MEDS ORDERED: ROCURONIUM BROMIDE 50 MG/5 ML SYRINGE ONE (07:49)
[2023-02-22] MEDS ORDERED: ONDANSETRON 4 MG/2 ML VIAL ONE ×2 (07:59→08:43)
[2023-02-22] MEDS ORDERED: DEXAMETHASONE SOD PHOSPHATE 4 MG/1 ML VIAL ONE (07:59)
[2023-02-22] MEDS ORDERED: ceFAZolin SODIUM 1 GM VIAL ONE (07:59)
[2023-02-22] MEDS ORDERED: ceFAZolin SODIUM 1 GM VIAL IVPB ONE (08:00)
[2023-02-22] MEDS ORDERED: BUPIVACAINE HCL/PF 0.5% (5MG/ML) 10 ML VIAL IJ ONE (08:11)
[2023-02-22] MEDS ORDERED: GLYCOPYRROLATE 0.2 MG/1 ML VIAL ONE (08:37)
[2023-02-22] MEDS ORDERED: NEOSTIGMINE METHYLSULFATE 0.5 MG/1 ML - 10 ML MDV ONE (08:39)
[2023-02-22] MEDS ORDERED: ONDANSETRON 4 MG/2 ML VIAL IVPUSH PRN (09:07)
[2023-02-22] MEDS ORDERED: oxyCODONE HCL 5 MG TABLET PO PRN (09:07)
[2023-02-22] MEDS ORDERED: LACTATED RINGERS SOLUTION 1,000 ML IV SCH (09:15)
[2023-02-22] MEDS ORDERED: oxyCODONE HCL 5 MG TABLET ONE ×2 (10:58→12:45)
[2023-02-22 11:13] VITALS: RESP 20
[2023-02-22] MEDS ORDERED: OXYBUTYNIN CHLORIDE 5 MG TABLET PO ONE (11:14)
[2023-02-22] MEDS ORDERED: oxyCODONE HCL 5 MG TABLET PO ONE (12:50)
[2023-02-22 12:55] VITALS: PULSE 80; TEMP 97.5
[2023-02-22 15:44] VITALS: BP 120/60
== END 2023-02-22 15:44 | disposition home or self-care (01) ==
LOC: JASU-SURG 04:10
PROVIDERS: ATTEND Obstetrics & Gynecology
PROC: 0UB04ZZ Excision of Right Ovary, Percutaneous Endoscopic Approach (ICD-10-PCS; principal; 2023-02-22 07:30)
DX: N83.201 Unspecified ovarian cyst, right side (principal)
CPT/HCPCS: 81025; 82962; 88305-TC; 94760

== ENCOUNTER 2023-05-04 17:56 | Emergency (ER) | payer OTHER ==
[2023-05-04 18:06] VITALS: BP 110/73; PULSE 106; RESP 20; TEMP 98.6; BMI 31.1
[2023-05-04] MEDS ORDERED: KETOROLAC TROMETHAMINE 30 MG/1 ML VIAL IM ONE (18:54)
[2023-05-04] MEDS ORDERED: KETOROLAC TROMETHAMINE 30 MG/1 ML VIAL ONE (19:00)
== END 2023-05-04 20:03 | disposition home or self-care (01) ==
LOC: JERFT 17:56
PROC: 3E0233Z Introduction of Anti-inflammatory into Muscle, Percutaneous Approach (ICD-10-PCS; principal; 2023-05-04)
DX: S93.422A Sprain of deltoid ligament of left ankle, initial encounter (principal); S80.912A Unspecified superficial injury of left knee, initial encounter; M25.572 Pain in left ankle and joints of left foot; R22.42 Localized swelling, mass and lump, left lower limb; W10.8XXA Fall (on) (from) other stairs and steps, initial encounter; Y93.01 Activity, walking, marching and hiking
CPT/HCPCS: 73562-TC-LT-FY; 73610-TC-LT-FY; 73630-TC-LT

== ENCOUNTER 2023-08-13 10:03 | Emergency (ER) | payer OTHER ==
[2023-08-13 10:15] VITALS: BP 106/73; PULSE 100; RESP 17; TEMP 98.4; BMI 31.1
[2023-08-13] MEDS ORDERED: BACITRACIN ZINC 15 GM TUBE TOPICAL OINTMENT ONE (11:32)
== END 2023-08-13 12:02 | disposition home or self-care (01) ==
LOC: JER 10:03 → JERFT 10:03
PROC: 0H98XZZ Drainage of Buttock Skin, External Approach (ICD-10-PCS; principal; 2023-08-13)
DX: L02.31 Cutaneous abscess of buttock (principal); R22.2 Localized swelling, mass and lump, trunk; M79.652 Pain in left thigh; R53.83 Other fatigue; R42 Dizziness and giddiness
CPT/HCPCS: 82962; 99283-25

== ENCOUNTER 2024-09-05 18:26 | Emergency (ER) | payer OTHER ==
[2024-09-05 18:34] VITALS: RESP 20; BMI 31.3
[2024-09-05 21:06] LABS: INR 1.04 (0.83-1.09)
[2024-09-05 21:09] LABS: ACTIVATED PTT 24.8 SECONDS (25.2-36.5)
[2024-09-05 21:10] LABS: HCG,QUALITATIVE URINE Negative; HEMOGLOBIN 14.4 GM/dL (10.7-15.3); MCH 27.1 pg (25.7-33.7); MCHC 32.7 g/dl (32.0-36.0); MEAN PLT VOLUME 8.5 fl (7.5-11.1); PLATELET COUNT 426 10^3/uL (134-434); POTASSIUM 4.3 mmol/L (3.5-5.1); RDW 15.4 % (11.6-15.6)
[2024-09-05 21:12] LABS: CALCIUM 10.2 mg/dL (8.5-10.1)
[2024-09-05 21:13] LABS: ALBUMIN 4.5 g/dl (3.4-5.0); BLOOD UREA NITROGEN 16.2 mg/dL (7-18)
[2024-09-05 21:16] LABS: CREATININE 0.7 mg/dL (0.55-1.3); PH,URINE 5.5 (5.0-8.0); URINE APPEARANCE CLEAR; URINE BILIRUBIN NEGATIVE (NEGATIVE); URINE COLOR YELLOW; URINE GLUCOSE (UA) 3+ (NEGATIVE); URINE KETONE 4+ (NEGATIVE); URINE LEUK ESTERASE NEGATIVE (NEGATIVE); URINE NITRITE NEGATIVE (NEGATIVE); URINE PROTEIN NEGATIVE (NEGATIVE); URINE UROBILINOGEN 0.2 mg/dL (0.2-1.0)
[2024-09-05 21:17] LABS: BILIRUBIN,TOTAL 0.4 mg/dL (0.2-1); TOT PROT 8.6 g/dl (6.4-8.2)
[2024-09-05] MEDS: ACETAMINOPHEN 500 MG TABLET (FP) PO ONE (21:52)
[2024-09-05] MEDS: ALBUTEROL SO4 2.5/IPRATROPIUM 0.5 INH SOL 3 ML VIAL.NEB. NEB ONE (21:53)
[2024-09-05] MEDS ORDERED: ACETAMINOPHEN 325 MG TABLET (FP) ONE (21:54)
[2024-09-05] MEDS ORDERED: ALBUTEROL SO4 2.5/IPRATROPIUM 0.5 INH SOL 3 ML VIAL.NEB. NEB ONE (21:55)
[2024-09-05 22:03] LABS: ANISOCYTOSIS 1+; MACROCYTOSIS 0
[2024-09-05 22:06] LABS: WHITE BLOOD COUNT 14.9 K/mm3 (4.0-10.0)
[2024-09-05] MEDS: ACETAMINOPHEN 1000 MG/100 ML BAG IVPB ONE (22:36)
[2024-09-05] MEDS: SODIUM CHLORIDE 1,000 ML IV STA ×2 (22:36→23:38)
[2024-09-05 23:48] VITALS: BP 113/69; PULSE 89; TEMP 98.3
[2024-09-06] MEDS ORDERED: NAPROXEN 500 MG TABLET ONE
[2024-09-06] MEDS: NAPROXEN 500 MG TABLET PO ONE (00:03)
== END 2024-09-06 01:23 | disposition home or self-care (01) ==
LOC: JER 18:26
PROC: 3E0337Z Introduction of Electrolytic and Water Balance Substance into Peripheral Vein, Percutaneous Approach (ICD-10-PCS; principal; 2024-09-05)
PROC: 3E0F7GC Introduction of Other Therapeutic Substance into Respiratory Tract, Via Natural or Artificial Opening (ICD-10-PCS; 2024-09-05)
DX: R07.89 Other chest pain (principal); R50.9 Fever, unspecified; R51.9 Headache, unspecified; G89.29 Other chronic pain; R53.1 Weakness; R09.81 Nasal congestion; R05.9 Cough, unspecified; J34.89 Other specified disorders of nose and nasal sinuses; Z20.822 Contact with and (suspected) exposure to COVID-19
CPT/HCPCS: 0241U-QW; 36415; 71046-TC-FY; 80053; 81003; 82550; 83605; 84443; 84484; 84703; 85025; 85379; 85610; 85730; 86618; 87077; 87086; 93005; 93010; 94640; 96360; 99285-25